=== PATIENT | male | born 1990 | race Caucasian/White ===

== ENCOUNTER 2018-10-12 18:03 | Emergency (ER) | payer OTHER, BC ==
[2018-10-12] MEDS ORDERED: ACETAMINOPHEN 325 MG TABLET PO ONE (19:44)
--- NOTE | 2018-10-12 19:44 | RADIOLOGY REPORT (SQ) ---
EXAM DESCRIPTION: FOOT RIGHT COMPLETE COMPLETED DATE/TIME: 10/12/2018 6:47 pm REASON FOR STUDY: left toe feels broken COMPARISON: None. NUMBER OF VIEWS: Three views. TECHNIQUE: AP, lateral and oblique radiographic images acquired of the right foot. LIMITATIONS: None. FINDINGS: MINERALIZATION: Normal. BONES: There is a nondisplaced fracture of the distal tuft of the 2nd phalanx. JOINTS: No effusions. SOFT TISSUES: No soft tissue swelling. No foreign body. OTHER: No other significant finding. IMPRESSION: Fracture distal tuft 2nd phalanx. TECHNICAL DOCUMENTATION: JOB ID: [id number] [employer]- All Rights Reserved Reading location - IP/workstation name: [email or web address]
--- NOTE | 2018-10-12 19:46 | ER Document Report ---
ED General - General Chief Complaint: Toe Injury Stated Complaint: HEAD INJURY Time Seen by Provider: 10/12/18 19:43 Primary Care Provider: MIKKI OWENS MD [COMMUNITY BASED STAFF] - Follow up in 3-5 days CESAR JUAREZ MD [ACTIVE STAFF] - Follow up as needed Notes: Patient is a 27-year-old male who presents to the emergency department after syncopal episode. He states that a board had fell on his right second toe and h e did up fainting and fell and hit his head. He was at work at this time. He does not remember everything, but this was a witnessed fall by his coworkers. He states that his coworkers that he hit his head and his head only hurts a little bit. Patient denies any numbness or tingling or any other symptoms at this time. Denies any weakness. Denies any past medical history. Does not take any medications. - Related Data Allergies/Adverse Reactions: No Known Allergies Allergy (Verified 01/15/12 19:34) Past Medical History - General Information source: Patient - Social History Smoking Status: Unknown if Ever Smoked Family History: Reviewed & Not Pertinent - Immunizations Immunizations up to date: No Hx Diphtheria, Pertussis, Tetanus Vaccination: No Review of Systems - Review of Systems Notes: REVIEW OF SYSTEMS: CONSTITUTIONAL : Denies recent illness. Denies recent unintentional weight loss. Denies fever, chills, or sweats. EENT: Denies eye, ear, throat, or mouth pain, discharge, or symptoms. Denies nasal or sinus congestion. CARDIOVASCULAR: Denies chest pain. RESPIRATORY: Denies shortness of breath, cough, congestion, difficulty breathing, or wheezing. GASTROINTESTINAL: Denies nausea, vomiting, and diarrhea. Denies abdominal pain. Denies constipation. GENITOURINARY: Denies difficulty urinating, burning, blood in urine, urgency or frequency. MUSCULOSKELETAL: See HPI SKIN: Denies rash, itchiness, or lesions HEMATOLOGIC : Denies easy bruising or bleeding. LYMPHATIC: Denies swollen, painful, enlarged glands. NEUROLOGICAL: See HPI PSYCHIATRIC: Denies stress, anxiety, alteration in sleep patterns, or depression. All other systems reviewed and negative. Physical Exam - Vital signs Vitals: Temp Pulse Resp BP Pulse Ox 98.6 F 79 18 147/80 H 99 10/12/18 18:25 10/12/18 18:25 10/12/18 18:25 10/12/18 18:25 10/12/18 18:25 - Notes Notes: PHYSICAL EXAMINATION: GENERAL: Appears well, healthy, well-nourished, no acute distress. HEAD: Normocephalic, atraumatic. EYES: PERRL, conjunctiva normal, all extraocular movements intact, sclera nonicteric ENT: Moist mucous membranes. NECK: Supple, no noticeable swelling, redness, rash. Normal range of motion. LUNGS: Equal breath sounds bilaterally and clear to auscultation. No wheezes rales or rhonchi. CARDIOVASCULAR: S1-S2, regular rate, regular rhythm. Radial pulses 2+, normal. ABDOMEN: Normoactive bowel sounds. Soft, nontender, no guarding, no rebound tenderness, and no masses palpated. EXTREMITIES: Normal strength and range of motion, tenderness to right second toe. No cyanosis. NEUROLOGICAL: Moves all extremities upon command. Strength 5/5 in all extremities. PSYCH: Normal mood, normal affect. SKIN: Warm, dry. No rash, lesions, ulcerations noted. Normal skin turgor. Course - Re-evaluation Re-evalutation: 10/12/18 21:11 Patient has a distal second toe fracture. He will be placed in mary tape, given crutches, and placed in a postop boot to help with his foot. No neurological deficits noted. No large hematoma noted on scalp. He is alert and oriented. No indication for head CT according to the [place] head CT rule. Chemistries and hematology are both unremarkable. His EKG shows sinus rhythm with no ectopy. I suspect he had a syncopal episode possibly due to the pain and the patient stated that he felt dehydrated at the time of the incident, but rehydrated himself shortly after the incident. He will follow-up with orthopedics in regards to this visit. I have advised him to follow-up with Workmen's Compensation or his primary care provider also. Follow-up precautions were given. Verbal discharge instructions were given to the patient. They verbalized understanding. They are stable for discharge. - Vital Signs Vital signs: Temp Pulse Resp BP Pulse Ox 98.7 F 79 16 140/74 H 98 10/12/18 21:37 10/12/18 21:37 10/12/18 21:37 10/12/18 21:37 10/12/18 21:37 - Laboratory Result Diagrams: 10/12/18 19:52 10/12/18 19:52 Laboratory results interpreted by me: 10/12/18 10/12/18 19:52 19:52 Seg Neutrophils % 78.9 H Albumin 5.3 H - EKG Interpretation by Me Additional EKG results interpreted by me: 10/12/18 21:10 Sinus bradycardia. Rate 58. VT 168; QRS 92; QT 396; QTc 389. No ST elevation or depression noted. Procedures - Immobilization Right second toe/foot Pre-Proc Neuro Vasc Exam: Normal Immobilizer type: Crutches, Post-op shoe, Other Performed by: PCT Post-Proc Neuro Vasc Exam: Normal, Unchanged from pre-exam Alignment checked and good: Yes Discharge - Discharge Clinical Impression: Fracture of second toe, left, closed Qualifiers: Encounter type: initial encounter Qualified Code(s): S92.502A - Displaced unspecified fracture of left lesser toe(s), initial encounter for closed fracture Syncope Qualifiers: Syncope type: unspecified Qualified Code(s): R55 - Syncope and collapse Condition: Stable Disposition: HOME, SELF-CARE Instructions: Use of Crutches ([facility]), Post-Op Shoe ([facility]) Additional Instructions: You were seen in the emergency department for a toe injury. You have a fracture. Please follow-up with the orthopedic doctor as needed. Rest your foot, apply ice, elevate your leg, and use crutches as needed. Please follow-up with your primary care provider or Workmen's Compensation in regards to this visit. Your labs and EKG were normal. Keep your toes taped together to help splint your broken toe. You can take Tylenol 1000 mg every 6 hours for your pain. Forms: Return to Work Referrals: CESAR JUAREZ MD [ACTIVE STAFF] - Follow up as needed MIKKI OWENS MD [COMMUNITY BASED STAFF] - Follow up in 3-5 days
[2018-10-12 20:11] LABS: ABSOLUTE LYMPHOCYTES (AUTO) 1.5 10^3/uL (0.5-4.7); ABSOLUTE MONOCYTES (AUTO) 0.5 10^3/uL (0.1-1.4); ABSOLUTE NEUT (AUTO) 7.8 10^3/uL (1.7-8.2); BASOPHILS % (AUTO) 0.3 % (0-2); EOSINOPHILS % (AUTO) 0.5 % (0-6); HEMATOCRIT 47.6 % (37.9-51.0); HEMOGLOBIN 16.5 g/dL (13.5-17.0); LYMPHOCYTES % (AUTO) 15.4 % (13-45); MEAN CORPUSCULAR HEMOGLOBIN 30.5 pg (27.0-33.4); MEAN CORPUSCULAR HGB CONC 34.6 g/dL (32.0-36.0); MEAN CORPUSCULAR VOLUME 88 fl (80-97); MONOCYTES % (AUTO) 4.9 % (3-13); PLATELET COUNT 236 10^3/uL (150-450); RED CELL DISTRIBUTION WIDTH 13.1 % (11.5-14.0); SEGMENTED NEUTROPHILS % (AUTO) 78.9 % (42-78); TOTAL CELLS COUNTED % (AUTO) 100 %; WHITE BLOOD COUNT 9.9 10^3/uL (4.0-10.5)
[2018-10-12 20:29] LABS: ALBUMIN 5.3 g/dL (3.5-5.0); ALKALINE PHOSPHATASE 77 U/L (38-126); ANION GAP 13 (5-19); ASPARTATE AMINO TRANSFERASE 21 U/L (17-59); BILIRUBIN,DIRECT 0.3 mg/dL (0.0-0.4); BILIRUBIN,TOTAL 0.8 mg/dL (0.2-1.3); BLOOD UREA NITROGEN 13 mg/dL (7-20); CALCIUM 9.6 mg/dL (8.4-10.2); CARBON DIOXIDE 28 mmol/L (22-30); CHLORIDE 98 mmol/L (98-107); GLUCOSE 97 mg/dL (75-110); POTASSIUM 4.1 mmol/L (3.6-5.0); TOTAL PROTEIN 8.2 g/dL (6.3-8.2)
[2018-10-12 21:40] VITALS: BP 140/74
== END 2018-10-12 21:41 | disposition home or self-care (01) ==
LOC: ER 18:03
DX: S92.532A Displaced fracture of distal phalanx of left lesser toe(s), initial encounter for closed fracture (principal); W20.8XXA Other cause of strike by thrown, projected or falling object, initial encounter; Y99.0 Civilian activity done for income or pay; R55 Syncope and collapse; R51 Headache; W19.XXXA Unspecified fall, initial encounter; R00.1 Bradycardia, unspecified
CPT/HCPCS: 36415; 80053; 85025